=== PATIENT | female | born 1960 | race Caucasian/White ===

== ENCOUNTER 2017-10-29 10:39 | Day surgery (SDC) | payer BC ==
[2017-10-22 19:18] VITALS: BMI 25.7
[2017-10-29] MEDS ORDERED: PROPOFOL 20 ML ONE (11:15)
[2017-10-29 14:56] VITALS: TEMP 97.8
[2017-10-29 14:59] VITALS: BP 127/77; PULSE 74
--- NOTE | 2017-10-31 17:06 | PATH ---
Surgical Pathology Report Patient Name: CHRISTINE HAYES [facility]. Rec. #: [id number] /Age/Gender: 1960 (Age: 56) / F Account: [id number] Location: [facility]-ENDOSCOPY Taken: 10/29/2017 Received: 10/30/2017 Reported: 10/31/2017 Physicians: Sun Lazaro M.D. Specimen(s) Received A: BX 2ND PORTION DUODENUM B: BX ANTRUM C: BX GE JUNCTION Clinical History Functional dyspepsia Postoperative diagnosis: Small hiatal hernia, gastritis Final Diagnosis A. DUODENUM, SECOND PORTION, BIOPSY: SMALL BOWEL MUCOSA WITHOUT SIGNIFICANT PATHOLOGIC FINDINGS. B. STOMACH, ANTRUM, BIOPSY: GASTRIC ANTRAL MUCOSA WITH MODERATE CHRONIC FOCAL ACTIVE GASTRITIS. IMMUNOHISTOCHEMICAL STAIN FOR H. PYLORI IS POSTIVE (RARE). C. GASTROESOPHAGEAL (GE) JUNCTION BIOPSY: GASTRIC CARDIAC TYPE MUCOSA WITH MODERATE CHRONIC FOCAL ACTIVE GASTRITIS. IMMUNOHISTOCHEMICAL STAIN FOR H. PYLORI IS POSTIVE (RARE). NO SQUAMOUS MUCOSA IDENTIFIED. NO INTESTINAL METAPLASIA OR DYSPLASIA IDENTIFIED. Electronically Signed Sun Parisi M.D. Gross Description A. Received in formalin, labeled "second portion duodenum" are 2 watt, irregular portions of soft tissue measuring 0.2 and 0.3 cm. in greatest dimension. The specimens are submitted in toto in one cassette. B. Received in formalin, labeled "antrum" is a watt, irregular portion of soft tissue measuring 0.2 cm. in greatest dimension. The specimen is submitted in toto in one cassette. C. Received in formalin, labeled "GE junction" are 2 watt, irregular portions of soft tissue measuring 0.1 and 0.4 cm. in greatest dimension. The specimens are submitted in toto in one cassette. VARUN/10/30/2017 ced/10/30/2017
== END 2017-10-29 15:00 | disposition home or self-care (01) ==
LOC: FASU-ENDO 10:39
PROVIDERS: ATTEND Internal Medicine Gastroenterology
PROC: 0DB68ZX Excision of Stomach, Via Natural or Artificial Opening Endoscopic, Diagnostic (ICD-10-PCS; 2017-10-29)
PROC: 0DB48ZX Excision of Esophagogastric Junction, Via Natural or Artificial Opening Endoscopic, Diagnostic (ICD-10-PCS; 2017-10-29)
PROC: 0DB98ZX Excision of Duodenum, Via Natural or Artificial Opening Endoscopic, Diagnostic (ICD-10-PCS; principal; 2017-10-29 12:15)
DX: K29.50 Unspecified chronic gastritis without bleeding (principal); B96.81 Helicobacter pylori [H. pylori] as the cause of diseases classified elsewhere; K44.9 Diaphragmatic hernia without obstruction or gangrene; R10.13 Epigastric pain